=== PATIENT | male | born 1955 | race African-American/Black ===

== ENCOUNTER 2016-09-27 17:50 | Emergency (ER) | payer OTHER ==
[~2016-09-27] VITALS: Ht 167.6 cm; Wt 60.1 kg
[2016-09-27 19:10] LABS: HEMATOCRIT 38.9 % (38.0-50.0); MCH 31.3 PG (29.0-34.0); MCHC 33.9 G/DL (30.0-36.0); MCV 92.2 FL (86-99); MEAN PLAT.VOLUME 9.2 uM^3 (9.0-12.4); PLATELET COUNT 174 K/uL (156-360); RBC DIS.WIDTH-CV 11.7 % (11.8-14.6); RBC DIS.WIDTH-SD 39.4 % (39-53); RED BLOOD COUNT 4.22 M/uL (4.00-5.50); WHITE BLOOD COUNT 5.4 K/uL (4.1-10.2)
[2016-09-27 19:19] LABS: CHLORIDE 97 mEq/L (99-109); POTASSIUM 4.5 mEq/L (3.7-5.4); SODIUM 138 mEq/L (136-147)
[2016-09-27 19:20] LABS: GLUCOSE 85 mg/dL (70-99)
[2016-09-27 19:22] LABS: ANION GAP 12 MEQ/L (2-14)
[2016-09-27 19:25] LABS: UREA NITROGEN (BUN) 30 mg/dL (9-23)
[2016-09-27 19:26] LABS: GFR ESTIMATE (CALCULATED) 6 mL/min/
[2016-09-27] MEDS ORDERED: MEDROL DOSEPAK4 MG PO (20:26)
[2016-09-27 20:41] VITALS: BP 126/76
== END 2016-09-27 20:44 ==
LOC: EME 17:50
PROVIDERS: Emergency Medicine
DX: M50.221 Other cervical disc displacement at C4-C5 level (principal); I12.0 Hypertensive chronic kidney disease with stage 5 chronic kidney disease or end stage renal disease; N18.6 End stage renal disease; Z99.2 Dependence on renal dialysis; Z87.891 Personal history of nicotine dependence
CPT/HCPCS: 80048; 85027; 99281; 99284; J1100; J3010